=== PATIENT | female | born 1970 | race Caucasian/White ===

== ENCOUNTER 2024-12-03 15:44 | Emergency (ER) | payer OTHER ==
[~2024-12-03] VITALS: Ht 162.6 cm; Wt 114.0 kg
[2024-12-03 15:52] VITALS: O2SAT 98
[2024-12-03] MEDS: SODIUM CHLORIDE 0.9% 1,000 ML IV ONE (16:25)
[2024-12-03] MEDS: MORPHINE SULFATE 4 MG/ML INJ (FOR IV/IM USE) IV STA (16:26)
[2024-12-03] MEDS: ONDANSETRON HCL 4MG/2ML INJ IV STA (16:26)
[2024-12-03 16:45] LABS: BASOPHILS % 0.9 % (0.0-2.0); EOSINOPHILS % 7.6 % (0.0-5.0); HEMATOCRIT. 42.6 % (36.0-48.0); HEMOGLOBIN. 13.7 g/dL (12.0-16.0); LYMPHOCYTES % 14.2 % (20.0-50.0); MEAN CORPUSCULAR HEMOGLOBIN 29.5 pg (28.0-32.0); MEAN CORPUSCULAR HGB CONC 32.2 g/dL (31.0-37.0); MEAN CORPUSCULAR VOLUME 91.7 fL (81.0-99.0); MEAN PLATELET VOLUME 9.4 fl (7.4-10.4); MONOCYTES % 10.6 % (2.0-8.0); NEUTROPHILS % 66.7 % (40.0-76.0); PLATELET 302 x1000/uL (130-400); RED BLOOD CELL COUNT 4.65 mill/uL (4.2-5.4); RED CELL DISTRIBUTION WIDTH 14.3 % (11.6-14.6); WHITE BLOOD COUNT 9.7 x1000/uL (4.5-11.0)
[2024-12-03 16:53] LABS: CHLORIDE 101 mEq/L (98-107); POTASSIUM 4.3 mEq/L (3.5-5.1); SODIUM 138 mEq/L (136-145)
[2024-12-03 16:54] LABS: CALCIUM 9.4 mg/dL (8.7-10.4); CARBON DIOXIDE 30 mEq/L (21-32)
[2024-12-03 16:59] LABS: CREATININE 0.8 mg/dL (0.6-1.0); GLUCOSE 99 mg/dL (70-105)
[2024-12-03 17:00] LABS: UREA NITROGEN BLOOD 14 mg/dL (9-23)
[2024-12-03 17:01] LABS: ALANINE AMINOTRANSFERASE 19 IU/L (10-49); ALBUMIN 4.2 g/dL (3.2-4.8); ASPARTATE AMINOTRANSFERASE 19 IU/L (<34); BILIRUBIN DIRECT < 0.1 mg/dL (<=3.0)
[2024-12-03 17:02] LABS: BILIRUBIN TOTAL 0.3 mg/dL (0.1-1.0); PROTEIN TOTAL 7.8 g/dL (6.0-8.3)
[2024-12-03 17:05] LABS: HCG SCREEN NEGATIVE
[2024-12-03 17:06] LABS: TROPONIN I HIGH SENSITIVITY < 4 ng/L (3.0-34)
[2024-12-03] MEDS: HYDROCODONE/ACETAMINOPHEN 5/325MG TABLET PO ONE (19:32)
[2024-12-03] MEDS ORDERED: IBUP-2028 MT (20:04)
[2024-12-03] MEDS ORDERED: HYDR-4001 MT (20:04)
[2024-12-03 22:00] VITALS: BP 112/58; PULSE 85; RESP 16; TEMP 36.9; O2SAT 98
== END 2024-12-03 22:32 | disposition home or self-care (01) ==
LOC: ER 15:44
DX: S40.022A Contusion of left upper arm, initial encounter (principal); S80.11XA Contusion of right lower leg, initial encounter; M25.532 Pain in left wrist; M79.10 Myalgia, unspecified site; M19.90 Unspecified osteoarthritis, unspecified site; Z79.899 Other long term (current) drug therapy; V89.2XXA Person injured in unspecified motor-vehicle accident, traffic, initial encounter; Y93.89 Activity, other specified; Y92.89 Other specified places as the place of occurrence of the external cause; Y99.8 Other external cause status; R41.82 Altered mental status, unspecified
CPT/HCPCS: 80076; 80048; 84703; 83690; 85025; 84484; 36415; 71045; 73030; 73060; 73090; 73110; 73130; 73560; 73590; 70450; 71250; 72192; 73200; 93005; 29125; 96361; 96374; 96375; 99285; J2405; J2270; J7030; Z7610